=== PATIENT | female | born 1975 | race Caucasian/White ===

== ENCOUNTER 2019-05-03 08:18 | Outpatient (CLI) | payer BC, SELFPAY ==
--- NOTE | ~2019-05-03 | MR_ITS ---
EXAMINATION: MR ankle RT wo con DATE: 05/03/2019 09:28 INDICATION: Right ankle pain TECHNIQUE: Magnetic resonance imaging (MRI) of the right ankle was performed without intravenous cont rast. Sequences included sagittal, coronal, and axial proton-density weighted fast spin echo without and with fat saturation. COMPARISON: Right ankle radiographs dated 04/23/2019 FINDINGS: Bones/other: Magnetic field artifact associated with internal fixation of old healed trimalleolar fracture of the right ankle. This includes a distal to proximal oriented fixation screw at the medial malleolus, two anterior to posterior directed screws extending across the tibial plafond across the coronally orient ed posterior malleolus fracture, a lateral plate and screw fixation along the lateral malleolus and a n additional anteriorly to posteriorly directed screw at the distal fibula. The alignment appears juanito r-anatomic. The fracture line along the articular surface of the tibial plafond measures approximatel y 1 mm in width throughout the majority of its length. There is an approximately 3-4 mm wide, 1-2 mm deep defect in the articular surface overlying the medial side of the talar dome. Small amount of res idual increased fluid signal along the likely still healing posterior medial or fracture plane. Marro w signal is otherwise normal throughout. 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 Aside from shiloh ng the fracture line at the tibial plafond and there are no other focal cartilage defects. Remaining joint spaces appear relatively preserved. Sinus Tarsi and tarsal tunnel are unremarkable. Medial ankle ligaments: The superficial deltoid ligaments as well as the spring ligament appear normal. There is mild loss of definition to the striated pattern of the deltoid ligament without surrounding edema which could rep resent mild scarring related to chronic sprain. Lateral ankle ligaments: Mild thickening of the anterior inferior tibiofibular ligament without surrounding edema and cyst wit h scarring related to chronic sprain with likely associated small healed fracture fragment at its fib ular insertion. The anterior talofibular, calcaneofibular and posterior talofibular ligaments are nor mal. Tendons: Achilles tendon is normal. The peroneus longus and brevis tendons are normal. The tibialis anterior a nd extensor hallucis longus and extensor digitorum longus tendons are normal. The tibialis posterior, flexor digitorum longus and flexor hallucis longus tendons are normal. Plantar fascia: Plantar aponeurosis is normal. Fluid: Physiologic amount of fluid in the joint spaces. No bursitis, tenosynovitis or other abnormal fluid c ollections. IMPRESSION: 1. 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 2. Mild scarring likely related to chronic sprains at the deep deltoid ligament and anterior inferior tibiofibular ligament. Reviewed, dictated and finalized at location A. IMPRESSION: 1. 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 2. Mild scarring likely related to chronic sprains at the deep deltoid ligament and anterior inferior tibiofibular ligament.
== END 2019-05-03 08:19 | disposition home or self-care (01) ==
PROVIDERS: PCP Internal Medicine; Visit Provider Orthopaedic Surgery
DX: M25.571 Pain in right ankle and joints of right foot (principal)
CPT/HCPCS: 73721

== ENCOUNTER 2019-05-29 14:02 | Outpatient (CLI) | payer BC, SELFPAY | END 2019-05-29 14:03 | disposition home or self-care (01) | PROVIDERS: PCP Internal Medicine; Visit Provider Internal Medicine | DX: R19.7 Diarrhea, unspecified (principal) | CPT/HCPCS: 87045; 87046; 87427; 89055 ==

== ENCOUNTER 2019-07-01 06:00 | Outpatient (CLI) | payer BC, SELFPAY ==
[2019-07-01 18:34] LABS: SARS-CoV-2 RNA PCR Negative
== END 2019-07-01 06:01 | disposition home or self-care (01) ==
LOC: ANHCOVIDDT 06:01
PROVIDERS: PCP Internal Medicine; Visit Provider Internal Medicine Gastroenterology
DX: Z01.818 Encounter for other preprocedural examination (principal); Z11.59 Encounter for screening for other viral diseases
CPT/HCPCS: 87635; C9803; U0003

== ENCOUNTER 2019-07-03 02:36 | Day surgery (SDC) | payer BC, SELFPAY ==
[2019-06-27 13:51] VITALS: BMI 34.4
[2019-07-03 11:30] VITALS: BP 140/95; PULSE 100; RESP 16; TEMP 36.6; O2SAT 97; BMI 36.7
[2019-07-03] MEDS: LACTATED RINGERS 1,000 ML 150 ML IV CONT (11:45)
--- NOTE | 2019-07-03 12:10 | WPDANESEPPF ---
Anes - Initial Pre Proc Eval Procedure: Operation Date: 07/03/19 13:00 Proposed Procedures p Colonoscopy - Anthony Martinez MD Date/Time: 07/03/19 12:10 Surgeon: Anthony Martinez MD Pre Op Diagnosis: Rectal bleeding and Diarrhea Patient Data Age: 44 Gender: F Height: 1.63 m Weight: 97.1 kg Last Vital Signs Temp 36.6 C 07/03/19 11:30 Pulse 100 07/03/19 11:30 Resp 16 07/03/19 11:30 BP 140/95 H 07/03/19 11:30 Pulse Ox 97 07/03/19 11:30 Allergies Allergy/AdvReac Type Severity Reaction Status Date / Time morphine Allergy Severe Respiratory Verified 07/03/19 11:28 arrest amoxicillin Allergy Mild Skin Verified 07/03/19 11:28 irritation clavulanic acid Allergy Mild Rash Verified 07/03/19 11:28 [From Augmentin] codeine AdvReac Mild Itching Verified 07/03/19 11:28 Home Medications Medication Instructions Recorded Confirmed Type escitalopram oxalate 5 mg tablet 5 mg PO DAILY 12/31/18 07/03/19 History diazepam 5 mg tablet 5 mg PO Q8H PRN #30 tablet 02/05/19 06/27/19 Rx atorvastatin 20 mg tablet 20 mg PO DAILY #90 tablet 06/30/19 Rx cyclobenzaprine 10 mg tablet 10 mg PO .HS PRN #30 tablet 06/30/19 Rx Patient hx anesthesia problems: none Family hx anesthesia problems: none PMFSH Past Medical History Medical History (Updated 06/09/19 @ 11:33 by Anthony Martinez MD) Chronic headaches Dizziness Fever HLD (hyperlipidemia) Painful orthopaedic hardware Rectal bleeding Stress fracture of right tibia Social History Social History Smoking status: Never smoker Second hand tobacco smoke exposure: No Alcohol intake: current Substance use: unknown Gender identity (if verbalized by the patient): Female Spiritual care concerns: No Anes - Eval Final PreProcedure Day of Procedure 07/03/19 12:10 Patient weight: obese Heart: regular rate and rhythm Lungs: clear to auscultation and normal air movement Airway: Mallampati scale class II Neurological: alert and oriented Last oral intake: >/= 8 hours ASA classification: III Emergent: no Anesthetic plan: proceed Anesthesia type and monitoring: general GIVS Informed Consent: The patient's anesthetic plan and its attendant risks and benefits were discussed with the patient/family/POA. Questions were solicited and answers provided to the satisfaction of the patient/family/POA.
--- NOTE | 2019-07-03 12:45 | WPDHPUPDATE1 ---
History and Physical Update Update Date/Time: 07/03/19 12:45 History and Physical has been reviewed, including an updated exam of the patient. There are NO changes in the patient's condition. Risks, benefits, and alternatives have been discussed and questions answered. Patient agrees to proceed with procedure.
[2019-07-03 13:04] VITALS: BP 102/81; PULSE 95; RESP 22; O2SAT 94
[2019-07-03 13:14] VITALS: BP 130/88; PULSE 84; RESP 18; O2SAT 100
[2019-07-03 13:24] VITALS: BP 130/94; PULSE 76; RESP 18; O2SAT 100
== END 2019-07-03 13:40 | disposition home or self-care (01) ==
PROVIDERS: PCP Internal Medicine; Visit Provider Internal Medicine Gastroenterology
PROC: 0DJD8ZZ Inspection of Lower Intestinal Tract, Via Natural or Artificial Opening Endoscopic (ICD-10-PCS; CPT 45378; principal; 2019-07-03 13:00)
DX: K52.9 Noninfective gastroenteritis and colitis, unspecified (principal); K64.8 Other hemorrhoids; E78.5 Hyperlipidemia, unspecified; E66.9 Obesity, unspecified; Z68.36 Body mass index [BMI] 36.0-36.9, adult
CPT/HCPCS: 45380; 88305; J2704; J7120

== ENCOUNTER 2021-01-17 01:26 | Day surgery (SDC) | payer BC, SELFPAY ==
--- NOTE | 2021-01-05 14:01 | SUR.PREOP ---
Report to the Outpatient Waiting Room, entrance under the green pavilion located off [facility], at time ____0600___ on date __01/17/21 . OR Time: . - You and your visitor will be asked a series of questions to screen for COVID 19 for your protection. - A mask is required within the hospital. - Only one visitor is allowed at this time. Patient visitors will be guided where to wait when not with patient. Preoperative COVID Testing Requirements: No COVID Test needed if: (proof is required; if not received patient will have Rapid Test prior to entry) - Patient has received COVID Vaccine at least 14 days prior to procedure date or - Patient has positive COVID test result within last 90 days of surgery date. COVID Test needed if above criteria is not met If not COVID vaccinated a COVID test must be conducted within 72 hours of surgery and patient is asked to isolate self from time of testing until procedure. You will go to the [facility] for your COVID testing. The [facility] is located at the corner of [address] from [facility]. You will only be called if COVID results are positive and your surgeon may reschedule your elective surgery date. Patients may have clear liquids (water, carbonated beverages, clear teas, apple juice) until 3 hours prior to surgery with a maximum of 20 ounces. - No food from midnight until time of surgery - Infants may have breast milk until 4 hours before surgery, infant formula 6 hours prior to surgery. - Children will be allowed to drink immediately following surgery. If applicable, please bring a bottle or sippy cup to assist with drinking. Juice, water, soda, and popsicles are readily available. For infants on formula, please bring formula the day of surgery. Pacifiers are allowed. Take the following medications with a SIP of water the morning of surgery: Medications to discontinue per physician MULTIVITAMIN Date to take last dose___01/14/21 Please no make-up, nail yi, hairspray, perfume, deodorant, or body powder the day of surgery. No jewelry (including any body piercings) or valuables the day of surgery, leave them at home. Please take a shower or bath the night before, or the morning of, surgery with an antibacterial soap. Wear comfortable, loose fitting clothing. Children are encouraged to wear pajamas. - Jewelry must be removed prior to entering the operating room. Rings and piercings that are not removed may be cut off. - The hospital will not accept responsibility for valuables. - Please leave all valuables, including medications, at home the day of surgery. If you are going home after surgery, a licensed cdl bulk driver must drive you home. - NO public transportation without another adult. - We recommend that an adult stay with you for 24 hours following discharge. - We also recommend that you do not drive, make important decision, drink alcoholic beverages, or take any drugs that were not prescribed by your health care provider for at least 24 hours after your discharge time. For Pediatric surgeries, we recommend two adults accompany the child home (only one inside the building at this time). Follow any additional instructions given to you from your surgeon. Telephone instructions given to __TEJ OGLESBY and asked if any additional questions and then verbalized understanding. Patient advised to call surgeon office or pre surgery nurse liaison [phone] if any additional questions.
[2021-01-05 14:14] VITALS: BMI 34.4
--- NOTE | 2021-01-11 15:44 | PM.IMHP ---
H&P: HPI History of Present Illness Date/Time: 01/11/21 15:44 Chief Complaint: right ankle pain Narrative: nearly 3 years status post open reduction internal fixation for right ankle fracture. Patient has prominence of the hardware and pain over the incision sites. Presents for removal of hardware. Review of Systems Constitutional: Constitutional: Denies fever(s) Eyes: Eyes: Denies blurry vision ENT: Reports Normal hearing present Cardiovascular: Cardiovascular: Denies chest pain and Denies dyspnea Respiratory: Respiratory: Denies dyspnea and Denies wheezing Gastrointestinal: Gastrointestinal: Denies abdominal pain Genitourinary: Genitourinary: Denies urinary urgency Musculoskeletal: Musculoskeletal: Reports as per HPI and Denies numbness Integumentary/Breasts: Skin/Breast: Denies changing lesions and Denies sores Neurologic: Reports Normal hearing present, Denies behavioral changes, Denies confusion, Denies numbness and Denies convulsions Psychiatric: Psychiatric: Denies behavioral changes, Denies confusion and Denies hallucinations Endocrine: Endocrine: Denies heat intolerance Hematologic/Lymphatic: Hematologic/Lymphatic: Denies easy bleeding Allergic/Immunologic: Allergic/Immunologic: Denies wheezing PMFSH Past Medical History Medical History Chronic headaches Dizziness Fever HLD (hyperlipidemia) Painful orthopaedic hardware Rectal bleeding Stress fracture of right tibia Family History Family History Father Family history of lung cancer, Onset Age: 52 Patient's father is Mother Family history of malignant neoplasm of breast in first degree relative Other Family history of malignant neoplasm Hypertension Social History Social History Smoking status: Never smoker Second hand tobacco smoke exposure: No Alcohol intake: current Drinks per week: 2 Substance use type: does not use Gender identity (if verbalized by the patient): Female Spiritual care concerns: No Meds Home Medications and Allergies Home Medications Medication Instructions Recorded Confirmed Type escitalopram oxalate 5 mg tablet 5 mg PO HS 12/31/18 01/05/21 History aspirin 81 mg tablet,delayed 81 mg PO DAILY 12/01/20 01/05/21 History release cyclobenzaprine 10 mg tablet 10 mg PO .HS PRN #30 tablet 12/01/20 01/05/21 Rx multivitamin 1 tablet PO DAILY 12/01/20 01/05/21 History atorvastatin 20 mg PO 2XW 01/05/21 01/05/21 History Allergies Allergy/AdvReac Type Severity Reaction Status Date / Time morphine Allergy Severe Respiratory Verified 01/05/21 13:48 arrest clavulanic acid Allergy Mild Rash Verified 01/05/21 13:48 [From Augmentin] codeine AdvReac Mild Itching Verified 01/05/21 13:48 Exam Const: General: No confusion Orientation/consciousness: patient oriented x3 and No confusion HENMT: Head: normal to inspection, normocephalic and atraumatic Eyes: Conjunctivae: conjunctivae normal Sclera: sclerae normal Neck: Neck: supple and nontender Chest: Chest palpation & inspection: normal inspection of the chest Resp: Effort & Inspection: normal respiratory effort and no audible wheezes Cardio: Rate: regular rate Rhythm: regular rhythm : General: Yes deferred Skin: General skin exam: no rashes or lesions noted Neuro: General: patient oriented x3 and No confusion Extrem: General: capillary refill normal Right upper extremity: normal to inspection Left upper extremity: normal to inspection Right lower extremity: hip/thigh Details: no tenderness, knee Details: normal ROM; no tenderness and no swelling, ankle Details: tenderness Location: of the lateral malleolus, anterolaterally and other ( sinus tarsi), swelling ( moderate) Details: laterally and medially and abnormal ROM ( ankle dorsifle
[2021-01-17] VITALS (7 sets, daily range): BP systolic 108–122; BP diastolic 63–84; PULSE 73–90; RESP 9–16; TEMP 36.4–36.7; O2SAT 98–100
--- NOTE | ~2021-01-17 | XR_ITS ---
EXAMINATION: XR surgery orthopedic DATE: 01/17/2021 09:03 INDICATION: Orthopedic instrumentation removal at the right ankle TECHNIQUE: 3 fluoroscopic images of the right ankle were obtained during procedure performed by Dr. Marck cuevas. Radiologist was not present for the imaging or procedure. The amount of fluoroscopy time used during this procedure was 0.4 minutes. COMPARISON: 11/16/2020 FINDINGS: Interval removal of the fixation screws at the distal right tibia and of the lateral plate and screws along the distal fibula with residual lucent screw tracks. There are few tiny flecks of me tallic density along with the lucent tracks and overlying soft tissues at the anterior aspect of the distal tibia. The prior fractures appear to have healed. No acute fractures identified. Joint spaces are normal. IMPRESSION: 1. Expected appearance post orthopedic instrumentation removal at the distal right tibia and fibula. See procedure note for further detail. Reviewed, dictated and finalized at location A. TRACER IMPRESSION: 1. Expected appearance post orthopedic instrumentation removal at the distal ri ght tibia and fibula. See procedure note for further detail.
[2021-01-17] MEDS: ACETAMINOPHEN 500 MG TABLET 1000 MG PO (06:51)
--- NOTE | 2021-01-17 06:58 | P.PNAN_ITS ---
Anes - Initial Pre Proc Eval Procedure: Operation Date: 01/17/21 07:30 Proposed Procedures p Removal Hardware Right Ankle - Delano Waldron MD Date/Time: 01/17/21 06:58 Surgeon: Delano Waldron MD Pre Op Diagnosis: right ankle painful hardware Patient Data Age: 45 Gender: F Height: 1.63 m Weight: 91 kg Allergies Allergy/AdvReac Type Severity Reaction Status Date / Time morphine Allergy Severe Respiratory Verified 01/17/21 06:48 arrest clavulanic acid Allergy Mild Rash Verified 01/17/21 06:48 [From Augmentin] codeine AdvReac Mild Itching Verified 01/17/21 06:48 Home Medications Medication Instructions Recorded Confirmed Type escitalopram oxalate 5 mg tablet 5 mg PO HS 12/31/18 01/17/21 History aspirin 81 mg tablet,delayed 81 mg PO 2XW 12/01/20 01/17/21 History release cyclobenzaprine 10 mg tablet 10 mg PO .HS PRN #30 tablet 12/01/20 01/17/21 Rx multivitamin 1 tablet PO DAILY 12/01/20 01/17/21 History atorvastatin 20 mg PO 2XW 01/05/21 01/17/21 History Patient hx anesthesia problems: post op nausea/vomiting Family hx anesthesia problems: none Results Review: All pre-operative results and documents have been reviewed as part of the pre-operative evaluation. [facility] Past Medical History Medical History Chronic headaches Dizziness Fever HLD (hyperlipidemia) Painful orthopaedic hardware Rectal bleeding Stress fracture of right tibia Family History Family History Father Family history of lung cancer, Onset Age: 52 Patient's father is Mother Family history of malignant neoplasm of breast in first degree relative Other Family history of malignant neoplasm Hypertension Social History Social History Smoking status: Never smoker Second hand tobacco smoke exposure: No Alcohol intake: current Drinks per week: 2 Substance use type: does not use Living arrangements: with family Gender identity (if verbalized by the patient): Female Spiritual care concerns: No Anes - Eval Final PreProcedure Day of Procedure 01/17/21 06:58 Patient weight: obese Heart: regular rate and rhythm Lungs: clear to auscultation and normal air movement Airway: Mallampati scale class II Neurological: alert and oriented Last oral intake: >/= 8 hours ASA classification: II Emergent: no Anesthetic plan: proceed Anesthesia type and monitoring: general LMA and standard monitoring Results Review: All pre-operative results and documents have been reviewed as part of the pre-operative evaluation. Informed Consent: The patient's anesthetic plan and its attendant risks and benefits were discussed with the patient/family/POA. Questions were solicited and answers provided to the satisfaction of the patient/family/POA.
[2021-01-17] MEDS: LACTATED RINGERS 1,000 ML 30 ML IV CONT ×3 (07:00→09:32)
[2021-01-17] MEDS: KETOROLAC 15 MG/ML VIAL (*BKC) IV PUSH (07:01)
--- NOTE | 2021-01-17 07:05 | WPDHPUPDATE1 ---
History and Physical Update Update Date/Time: 01/17/21 07:05 History and Physical has been reviewed, including an updated exam of the patient. There are NO changes in the patient's condition. Risks, benefits, and alternatives have been discussed and questions answered. Patient agrees to proceed with procedure.
[2021-01-17] MEDS: SCOPOLAMINE 1.5 MG PATCH TRANSDERM (07:15)
[2021-01-17] MEDS: ceFAZolin 2 GM/D5W 50 ML 2 GM/50 ML BAG IVPB (07:30)
[2021-01-17] MEDS: methylPREDNISolone ACETATE 80 MG/ML VIAL 40 MG IM (08:19)
--- NOTE | 2021-01-17 08:30 | SUR.PREOP ---
patient states has crutches at home and knows how to use. also has incentive spirometer at home and reviewed instructions on use.
--- NOTE | 2021-01-17 09:35 | P.OP_ITS ---
Procedure Note - Detailed Date of Procedure 01/17/21 Pre-op Diagnosis right ankle painful hardware Post-op Diagnosis same Procedure Performed Removal of hardware right ankle, intra-articular injection ankle Surgeon Delano Waldron MD Vice President [employer] 1st occupational therapist assistants Anesthesia general Indications 45-year-old woman who is status post open reduction internal fixation of right ankle trimalleolar fracture. Has gone on to heal the fracture but has pain over the hardware. Presents now for operative removal of the hardware as well as a cortisone injection of the ankle joint. Ankle joint shows mild posttraumatic degenerative changes. Has had 1 previous injection with good relief. Findings Anterior to posterior cannulated cancellous screw unable to be loosened with the screwdriver due to hardening of the fracture site. Cor removal of the screw with back filling of the bone void with allograft bone. Description of Procedure What was done: Patient identified in the preoperative holding. Informed consent given. Operative extremity marked. Patient received intravenous antibiotics. Patient brought to the operating room where underwent general anesthetic by anesthesia team. Positioned supine on operating room table. Time-out performed confirming the patient, site of the surgery and the plan. Right lower extremity prepped draped usual sterile surgical fashion using a ChloraPrep skin solution. Foot ankle exsanguinated and a calf tourniquet inflated to 225 mmHg. Previous incisions utilized. Fifteen blade knife used to make the lateral incision at the distal fibula. The plate screws were identified and removed. Any of the excess bone growth was removed with a rongeur. Screw holes were curetted. Thoroughly irrigated closed with 2 Vicryl interrupted suture for the fascia, 3 0 Monocryl interrupted sutures for the subcutaneous tissue and a 3 0 Monocryl running subcuticular stitch for the skin. Steri-Strips applied. Attention then turned to the cannulated screws. A guide pin was able to be placed in the more lateral anterior to posterior screw and the medial malleolus screw and these were removed without difficulty. The medial anterior to posterior screw was locked into position. Fifteen blade knife was used to make an incision over the screw. A core hardware removal device was then used over the screw. Wound was thoroughly irrigated and the bone void was filled with allograft bone chips and packed into position. These incisions were closed with 3 Monocryl subcuticular stitch and Steri-Strips. 25 gauge needle then placed into the tibiotalar joint from the anterior position. 80 mg of Depo-Medrol and 2 cc of 0.5% Marcaine injected. Sterile dressings then applied after releasing the tourniquet. The patient was then woken from anesthesia, extubated and taken to the recovery room in stable condition. All sponge, needle, instrument counts were correct at the end of the case. Estimated Blood Loss 5 Tourniquet Time 70 Drains No Packing No Pathology none sent Complications None Condition stable Disposition PACU
[2021-01-17] MEDS: fentaNYL CITRATE INJ (*CRX) 100 MCG/2 ML VIAL 25 MCG IV PUSH ×2 (09:42→09:49)
[2021-01-17] MEDS: oxyCODONE HCL (*CRX) 5 MG TAB IR PO (10:40)
== END 2021-01-17 11:16 | disposition home or self-care (01) ==
PROVIDERS: PCP Internal Medicine; Visit Provider Orthopaedic Surgery
PROC: (CPT 20680; principal; 2021-01-17 07:30)
DX: M25.571 Pain in right ankle and joints of right foot (principal); S82.851A Displaced trimalleolar fracture of right lower leg, initial encounter for closed fracture; Y83.8 Other surgical procedures as the cause of abnormal reaction of the patient, or of later complication, without mention of misadventure at the time of the procedure; Z79.82 Long term (current) use of aspirin; E78.5 Hyperlipidemia, unspecified; E66.9 Obesity, unspecified; Z68.35 Body mass index [BMI] 35.0-35.9, adult
CPT/HCPCS: 20680; 20605; A9270; C1713; J0690; J1040; J1885; J2250; J2405; J2704; J3010; J7120

== ENCOUNTER 2021-02-17 09:03 | Outpatient (CLI) | payer BC, SELFPAY ==
[2021-02-17 11:33] LABS: SARS-CoV-2 RNA PCR Positive (Negative)
== END 2021-02-17 09:04 | disposition home or self-care (01) ==
PROVIDERS: PCP Physician Assistant; Visit Provider Physician Assistant
DX: U07.1 COVID-19 (principal); R68.89 Other general symptoms and signs
CPT/HCPCS: C9803; U0003; U0005

== ENCOUNTER 2021-02-21 08:55 | Outpatient (RCR) | payer BC, SELFPAY ==
[2021-02-21] MEDS: ACETAMINOPHEN 325 MG TABLET 650 MG PO (15:18)
[2021-02-21] MEDS: diphenhydrAMINE HCl CAP 25 MG CAPSULE PO (15:18)
[2021-02-21] MEDS: FAMOTIDINE 20 MG TABLET PO (15:18)
[2021-02-21 15:23] VITALS: BP 136/87; PULSE 80; RESP 20; TEMP 35.6; O2SAT 98
[2021-02-21 16:22] VITALS: BP 121/82
== END 2021-02-21 17:00 | disposition home or self-care (01) ==
LOC: AMCINF 08:55
PROVIDERS: PCP Physician Assistant; Visit Provider Internal Medicine Hematology & Oncology
DX: U07.1 COVID-19 (principal)
CPT/HCPCS: A9270; M0243; Q0244

== ENCOUNTER 2021-08-10 07:43 | Outpatient (CLI) | payer BC, SELFPAY ==
--- NOTE | ~2021-08-10 | US_ITS ---
EXAMINATION: US soft tissue head and neck, US soft tissue UE RT DATE: 08/10/2021 08:14 INDICATION: Lump at the right neck and right arm. TECHNIQUE: Multiple grayscale and Doppler ultrasound images of the regions of concern at the supracla vicular right neck and at the antecubital fossa of the right arm were obtained. COMPARISON: None FINDINGS: No abnormal masses or fluid collections identified at the right supraclavicular region of concern. Th ere are couple normal-sized ovoid hypoechoic right supraclavicular lymph nodes measuring 5 mm and 2.5 mm in short axis dimensions. Similarly no abnormal masses or fluid collections identified at the rig ht antecubital fossa. No evident elbow joint effusion. There are a couple patent and compressible vei ns in likely the cephalic and basilic veins at the medial and lateral sides of the antecubital fossa. IMPRESSION: 1. No correlate identified for the reported palpable abnormalities at the region of concern at the venegas praclavicular right neck and right antecubital fossa. Specifically no pathologically enlarged lymphad enopathy, lipoma or other masses or fluid collections identified. Reviewed, dictated and finalized at location B. IMPRESSION: 1. No correlate identified for the reported palpable abnormalities at the regio n of concern at the supraclavicular right neck and right antecubital fossa. Spe cifically no pathologically enlarged lymphadenopathy, lipoma or other masses or fluid collections identified.
== END 2021-08-10 07:44 | disposition home or self-care (01) ==
PROVIDERS: PCP Internal Medicine; Visit Provider Physician Assistant
DX: R22.1 Localized swelling, mass and lump, neck (principal); M25.521 Pain in right elbow
CPT/HCPCS: 76536; 76882

== ENCOUNTER 2021-09-02 09:13 | Outpatient (CLI) | payer BC, SELFPAY ==
--- NOTE | 2021-09-02 09:32 | ECHO_ITS ---
Patient Info Name: Krysta Conde Age: 46 years : 1975 Gender: Female Ht: 64 in Wt: 200 lbs BSA: 2.06 m2 HR: 80 bpm BP: 118 / 95 mmHg Technical Quality: Good Exam Date: 09/02/2021 10:12 AM Exam Location: [facility] Patient Status: Outpatient Admit Date: 09/02/2021 Staff Ordering Physician: Don Ruth DO Rn Pool: Loni Mosher RDCS Attending Provider: Dalton Mccord PA-C Referring Physician: Flory SERRANO; Exam Type: CA echo doppler color flow Study Info Indications I10 - Essential (primary) hypertension Complete two-dimensional, color flow and Doppler transthoracic echocardiogram is performed. Summary 1. Complete two-dimensional, color flow and Doppler transthoracic echocardiogram is performed. 2. Left ventricular chamber dimension is normal. 3. Left ventricular systolic function is normal, estimated at 60-65%. 4. The left ventricular diastolic function is normal. 5. E/e' 8 is minimally elevated. 6. Global longitudinal strain is abnormal at -13.5%. 7. There is trace tricuspid valve regurgitation. 8. No pulmonary hypertension, estimated pulmonary arterial systolic pressure is 15 mmHg. Left Ventricle E/e' 8 is minimally elevated. Global longitudinal strain is abnormal at -13.5%. Left ventricular chamber dimension is normal. Left ventricular systolic function is normal, estimated at 60-65%. The left ventricular diastolic function is normal. Right Ventricle Right ventricular systolic function is normal and with normal TAPSE 1.8 cm. Right ventricular chamber dimension is normal. Left Atria Left atrial chamber dimension is normal. Right Atria Right atrial chamber dimension is normal. Aortic Valve The aortic valve is trileaflet. There is no aortic valve stenosis. There is no aortic valve regurgitation. Pulmonic Valve There is no pulmonic regurgitation. Mitral Valve There is no mitral valve stenosis. There is no mitral valve regurgitation. Tricuspid Valve There is trace tricuspid valve regurgitation. No pulmonary hypertension, estimated pulmonary arterial systolic pressure is 15 mmHg. Pericardium/Pleural There is no pericardial effusion. Inferior Vena Cava Normal inferior vena cava with >50% collapse upon inspiration consistent with normal right atrial pressure, 5 mmHg. Aorta The aortic root size at the sinus of Valsalva is normal. Left Ventricular Outflow Tract Name Value Normal LVOT 2D LVOT Diameter 1.9 cm LVOT Doppler LVOT Peak Gradient 3 mmHg LVOT Mean Gradient 2 mmHg LVOT VTI 16 cm LVOT VTI/AV VTI Ratio 0.7 LVOT Stroke Volume 47 ml LVOT CO 3.5 l/min LVOT CI 1.7 l/min/m2 Pulmonic Valve Name Value Normal RVOT Doppler
[2021-09-02 09:58] LABS: Alanine Aminotransferase 14 U/L (6-35); Albumin Level 4.2 g/dL (3.5-5.1); Alkaline Phosphatase 171 U/L (38-126); Anion Gap 6 mmol/L (8-16); Aspartate Amino Transferase 19 U/L (14-36); Bilirubin,Total 0.8 mg/dL (0.2-1.3); Blood Urea Nitrogen 20 mg/dL (7-17); Calcium 9.1 mg/dL (8.4-10.2); Carbon Dioxide 25 mmol/L (22-30); Chloride 104 mmol/L (98-107); Cholesterol 194 mg/dL (0-200); Estimated Glomerular Filt Rate 59; Glucose 95 mg/dL (65-110); HDL Direct 32 mg/dL; Potassium 4.5 mmol/L (3.4-5.0); Sodium 135 mmol/L (137-145); Triglycerides 176 mg/dL (<150)
[2021-09-02 10:09] LABS: LDL Cholesterol Direct 113 mg/dL
== END 2021-09-02 09:14 | disposition home or self-care (01) ==
PROVIDERS: PCP Internal Medicine; Visit Provider Physician Assistant
DX: R53.83 Other fatigue (principal); E78.5 Hyperlipidemia, unspecified; I10 Essential (primary) hypertension
CPT/HCPCS: 36415; 80053; 80061; 84443; 93306

== ENCOUNTER 2022-06-20 13:21 | Outpatient (NON) | payer BC, SELFPAY | END 2022-06-20 13:22 | disposition home or self-care (01) | LOC: ANHLAB 06-21 13:23 | PROVIDERS: PCP Internal Medicine; Visit Provider Nurse Practitioner | DX: D49.2 Neoplasm of unspecified behavior of bone, soft tissue, and skin (principal) | CPT/HCPCS: 88305 ==